=== PATIENT | female | born 1965 | race African-American/Black ===

== ENCOUNTER 2016-11-01 10:51 | Emergency (ER) | payer BC ==
--- NOTE | 2016-11-01 11:03 | ER Document Report ---
ED Medical Screen (RME) - General Chief Complaint: Sore Throat Stated Complaint: SORE THROAT Time seen by provider: 11:00 Mode of Arrival: Ambulatory Information source: Patient Notes: 51-year-old female presents to ED for sore throat for the last 2 weeks. States her throat is swollen and sometimes when she is laying time she has trouble choking on her saliva and mucus. States she has a nasal drainage and a cough. States she had a fever 2 weeks ago not now. States 2 weeks ago she was put on clindamycin and azithromycin and she took them as supposed to and the pain and swelling is still there. States she is postmenopausal I have greeted and performed a rapid initial assessment of this patient. A comprehensive ED assessment and evaluation of the patient, analysis of test results and completion of medical decision making process will be conducted by an additional ED providers. TRAVEL OUTSIDE OF THE [place] IN LAST 30 DAYS: No - Related Data Allergies/Adverse Reactions: Penicillins Allergy (Verified 05/18/16 21:55) Past Medical History - Past Medical History Cardiac Medical History: Reports: Hx Coronary Artery Disease, Hx DVT, Hx Hypercholesterolemia, Hx Hypertension Denies: Hx Heart Attack Pulmonary Medical History: Reports: Hx Bronchitis Denies: Hx Asthma, Hx COPD, Hx Pneumonia Neurological Medical History: Denies: Hx Cerebrovascular Accident, Hx Seizures Endocrine Medical History: Reports: Hx Diabetes Mellitus Type 2 Musculoskeltal Medical History: Reports Hx Arthritis Psychiatric Medical History: Denies: Hx Depression Past Surgical History: Reports: Hx Appendectomy, Hx Cholecystectomy, Hx Kidney ( Renal Surgery), Hx Orthopedic Surgery, Hx Tubal Ligation. Denies: Hx Hysterectomy - Immunizations Immunizations up to date: Yes Hx Diphtheria, Pertussis, Tetanus Vaccination: Yes Physical Exam - Vital signs Vitals: Temp Pulse Resp BP Pulse Ox 97.9 F 53 L 18 154/92 H 99 11/01/16 10:55 11/01/16 10:55 11/01/16 10:55 11/01/16 10:55 11/01/16 10:55 Course - Vital Signs Vital signs: Temp Pulse Resp BP Pulse Ox 97.9 F 53 L 18 154/92 H 99 11/01/16 10:55 11/01/16 10:55 11/01/16 10:55 11/01/16 10:55 11/01/16 10:55
--- NOTE | 2016-11-01 11:43 | ER Document Report ---
ED General - General Chief Complaint: Sore Throat Stated Complaint: SORE THROAT Mode of Arrival: Ambulatory Information source: Patient Notes: Patient presents to the emergency department with complaints of having problems breathing throat swelling. Patient reports symptoms worse the past 2 weeks. She reports she was at urgent care and they treated her with Zithromax and clindamycin. She reports this is an ongoing problem for over a year ago. Patient reports she felt like she is warm never took her temperature patient also complains of diarrhea 2 weeks ago and once this past monday. Denies vomiting. TRAVEL OUTSIDE OF THE [place] IN LAST 30 DAYS: No - HPI Onset: Other Onset/Duration: Persistent Quality of pain: Achy, Fullness Pain Level: 4 Associated symptoms: Productive cough, Diarrhea, Fever, Nausea, Sore throat Exacerbated by: Denies Relieved by: Denies Similar symptoms previously: Yes Recently seen / treated by doctor: Yes - Related Data Allergies/Adverse Reactions: Penicillins Allergy (Verified 11/01/16 11:01) Past Medical History - General Information source: Patient - Social History Smoking Status: Current Every Day Smoker Cigarette use (# per day): Yes Chew tobacco use (# tins/day): No Frequency of alcohol use: Occasional Drug Abuse: None Family History: Reviewed & Not Pertinent Patient has suicidal ideation: No Patient has homicidal ideation: No - Past Medical History Cardiac Medical History: Reports: Hx Coronary Artery Disease, Hx DVT, Hx Hypercholesterolemia, Hx Hypertension Denies: Hx Heart Attack Pulmonary Medical History: Reports: Hx Bronchitis Denies: Hx Asthma, Hx COPD, Hx Pneumonia Neurological Medical History: Denies: Hx Cerebrovascular Accident, Hx Seizures Endocrine Medical History: Reports: Hx Diabetes Mellitus Type 2 Renal/ Medical History: Denies: Hx Peritoneal Dialysis Musculoskeltal Medical History: Reports Hx Arthritis Psychiatric Medical History: Denies: Hx Depression Past Surgical History: Reports: Hx Appendectomy, Hx Cholecystectomy, Hx Kidney ( Renal Surgery), Hx Orthopedic Surgery, Hx Tubal Ligation. Denies: Hx Hysterectomy - Immunizations Immunizations up to date: Yes Hx Diphtheria, Pertussis, Tetanus Vaccination: Yes Review of Systems - Review of Systems Notes: Review HPI for review of systems., All other systems negative Physical Exam - Vital signs Vitals: Temp Pulse Resp BP Pulse Ox 97.9 F 53 L 18 154/92 H 99 11/01/16 10:55 11/01/16 10:55 11/01/16 10:55 11/01/16 10:55 11/01/16 10:55 - Notes Notes: PHYSICAL EXAMINATION: GENERAL: Well-appearing and in no acute distress HEAD: Atraumatic, normocephalic. EYES: Pupils equal round, extraocular movements intact, sclera anicteric, conjunctiva are normal. ENT: nares patent, oropharynx clear without exudates. Moist mucous membranes. Good airway, no trouble talking, +post nasal discharge NECK: Normal range of motion, supple without lymphadenopathy , c/o pain chin LUNGS: CTAB and equal. No wheezes rales or rhonchi. HEART: Regular rate and rhythm without murmurs ABDOMEN: soft, no c/o pain EXTREMITIES: Normal range of motion, no pitting edema. NEUROLOGICAL: Cranial nerves grossly intact. Normal sensory/motor PSYCH: Normal mood, normal affect. SKIN: Warm, Dry, normal turgor, no rashes or lesions noted Course - Re-evaluation Re-evalutation: 11/01/16 11:38 I have consulted the attending provider, dr echavarria, per [facility] guidelines he advises CT soft tissue neck. Labs ordered to check renal function patient informed of plan of care and agrees to plan. 11/01/16 13:29 Patient has had this chronic swelling or feeling like a swelling to her neck with gagging for over a year. She's been evaluated several times for this. Due to her current symptoms a CT was done and it was negative. Patient instructed on the results of all labs and CT and chest x-ray. Patient was instructed on the importance of drinking lots of fluids to flush her kidneys and no metformin for 48 hours, pt also received information from radiology. She verbalized understanding. Patient instructed to follow up with Dr. Stallings for referral to ENT. Patient was also instructed on postnasal drip. - Vital Signs Vital signs: Temp Pulse Resp BP Pulse Ox 97.9 F 53 L 18 154/92 H 99 11/01/16 10:55 11/01/16 10:55 11/01/16 10:55 11/01/16 10:55 11/01/16 10:55 - Laboratory Result Diagrams: 11/01/16 11:48 11/01/16 11:48 Laboratory results interpreted by me: 11/01/16 11/01/16 11:48 11:48 RDW 14.2 H Creatinine 1.33 H Est GFR ( Amer) 51 L Est GFR (Non-Af Amer) 42 L - Diagnostic Test Radiology reviewed: Image reviewed, Reports reviewed - IMPRESSION: No evidence of abscess or other acute finding cxray-neg Discharge - Discharge Clinical Impression: Sore throat, history of gagging, elevated blood pressure Condition: Stable Disposition: HOME, SELF-CARE Instructions: Sore Throat ([facility]), ENT Additional Instructions: *You have been evaluated for a sore throat, history of gagging *The CT of your neck was negative for an acute injury, abscess or swelling *The chest xray was negative for pneumonia *The strep test was negative but a culture is pending, you will be contacted should you need antibiotics. *Monitor your blood pressure. Your blood pressure was elevated today. This may be because you were anxious, in pain or because you need medication. It is important to follow up with your primary care provider for full evaluation. *Monitor your temperature, take tylenol as indicated *Warm salt water gargles and throat lozenges for comfort *Good hand washing *Follow-up with Dr Wilder within one week *Follow up with ENT for evaluation of symptoms *Return to ED for worsening condition change, needs, trouble breathing, concerns Forms: Elevated Blood Pressure
[2016-11-01 12:14] LABS: ABSOLUTE BASOPHILS # (AUTO) 0.1 10^3/uL (0.0-0.2); ABSOLUTE EOSINOPHILS # (AUTO) 0.2 10^3/uL (0.0-0.6); ABSOLUTE LYMPHOCYTES (AUTO) 2.6 10^3/uL (0.5-4.7); ABSOLUTE MONOCYTES (AUTO) 0.6 10^3/uL (0.1-1.4); ABSOLUTE NEUT (AUTO) 2.6 10^3/uL (1.7-8.2); EOSINOPHILS % (AUTO) 2.9 % (0-6); HEMATOCRIT 38.3 % (36.0-47.0); HEMOGLOBIN 12.5 g/dL (12.0-15.5); HGB HCT DIFFERENCE -0.8; LYMPHOCYTES % (AUTO) 42.6 % (13-45); MEAN CORPUSCULAR HEMOGLOBIN 30.4 pg (27.0-33.4); MEAN CORPUSCULAR HGB CONC 32.6 g/dL (32.0-36.0); MEAN CORPUSCULAR VOLUME 93 fl (80-97); MONOCYTES % (AUTO) 10.1 % (3-13); RED BLOOD COUNT 4.11 10^6/uL (3.72-5.28); RED CELL DISTRIBUTION WIDTH 14.2 % (11.5-14.0); SEGMENTED NEUTROPHILS % (AUTO) 43.4 % (42-78); WHITE BLOOD COUNT 6.1 10^3/uL (4.0-10.5)
[2016-11-01 12:33] LABS: ALANINE AMINOTRANSFERASE 21 U/L (9-52); ALKALINE PHOSPHATASE 79 U/L (38-126); ANION GAP 12 (5-19); ASPARTATE AMINO TRANSFERASE 15 U/L (14-36); BILIRUBIN,TOTAL 0.6 mg/dL (0.2-1.3); BLOOD UREA NITROGEN 15 mg/dL (7-20); CALCIUM 9.2 mg/dL (8.4-10.2); CARBON DIOXIDE 26 mmol/L (22-30); CHLORIDE 104 mmol/L (98-107); CREATININE RESULT 1.33 mg/dL (0.52-1.25); GLUCOSE 89 mg/dL (75-110); POTASSIUM 4.4 mmol/L (3.6-5.0); SODIUM 141.6 mmol/L (137-145); TOTAL PROTEIN 6.5 g/dL (6.3-8.2)
[2016-11-01 13:51] VITALS: BP 149/81
== END 2016-11-01 13:51 | disposition home or self-care (01) ==
LOC: ER 10:51
DX: J02.9 Acute pharyngitis, unspecified (principal); R06.00 Dyspnea, unspecified; R19.7 Diarrhea, unspecified; R09.82 Postnasal drip; R05 Cough; R11.0 Nausea; E11.9 Type 2 diabetes mellitus without complications; I25.10 Atherosclerotic heart disease of native coronary artery without angina pectoris; I10 Essential (primary) hypertension; F17.210 Nicotine dependence, cigarettes, uncomplicated; Z88.0 Allergy status to penicillin; Z86.718 Personal history of other venous thrombosis and embolism
CPT/HCPCS: 36415; 70491; 71020; 80053; 85025; 87070; 87077; 87880; 99284

== ENCOUNTER 2017-02-11 14:37 | Emergency (ER) | payer BC ==
[2017-02-11] MEDS ORDERED: OXYCODONE-ACETAMINOPHEN 5-325 MG TABLET PO ONE (15:33)
--- NOTE | 2017-02-11 15:50 | ER Document Report ---
HPI - HPI Patient complains to provider of: sore throat, foot pain Onset: Other - Sore throat 5 days, foot pain 1 week Onset/Duration: Persistent Quality of pain: Burning, Sharp Pain Level: 5 Context: Patient complains of a burning pain to bilateral feet for the past week. Patient states she has been diagnosed with diabetic neuropathy and complains of a flare up of her pain. Patient states she has been compliant taking her gabapentin but denies any improvement of her pain symptoms. Patient denies any injury to the feet. Patient also reports sore throat for the past 5 days. No fever. Patient does complain of swelling to bilateral ankles and right foot. Patient states she has a prescription for Lasix that she is supposed to take twice a day, but due to her work schedule she typically only takes the medication once a day as she does not find enough opportunity to void when she is working, so she does not take her prescribed dose. Associated Symptoms: Other - Sore throat, bilateral foot pain. denies: Fever, Nausea, Vomiting Exacerbated by: Denies Relieved by: Denies Similar symptoms previously: Yes - ROS ROS below otherwise negative: Yes Systems Reviewed and Negative: Yes All other systems reviewed and negative - CONSTITUTIONAL Constitutional: DENIES: Fever, Chills - EENT EENT: REPORTS: Sore Throat. 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 Family History: Reviewed & Not Pertinent Patient has suicidal ideation: No Patient has homicidal ideation: No - Past Medical History Cardiac Medical History: Reports: Hx Coronary Artery Disease, Hx DVT, Hx Hypercholesterolemia, Hx Hypertension Denies: Hx Heart Attack Pulmonary Medical History: Reports: Hx Bronchitis Denies: Hx Asthma, Hx COPD, Hx Pneumonia Neurological Medical History: Denies: Hx Cerebrovascular Accident, Hx Seizures Endocrine Medical History: Reports: Hx Diabetes Mellitus Type 2 Renal/ Medical History: Denies: Hx Peritoneal Dialysis Musculoskeltal Medical History: Reports Hx Arthritis Psychiatric Medical History: Denies: Hx Depression Past Surgical History: Reports: Hx Appendectomy, Hx Cholecystectomy, Hx Kidney ( Renal Surgery), Hx Orthopedic Surgery, Hx Tonsillectomy, Hx Tubal Ligation. Denies: Hx Hysterectomy - Immunizations Immunizations up to date: Yes Hx Diphtheria, Pertussis, Tetanus Vaccination: Yes Vertical Provider Document - CONSTITUTIONAL Agree With Documented VS: Yes Exam Limitations: No Limitations General Appearance: WD/WN, No Apparent Distress - INFECTION CONTROL TRAVEL OUTSIDE OF THE [place] IN LAST 30 DAYS: No - HEENT HEENT: Atraumatic, Normocephalic, Pharyngeal Tenderness. negative: Pharyngeal Exudate, Pharyngeal Erythema Notes: No potential airway compromise - NECK Neck: Normal Inspection, Supple. negative: Lymphadenopathy-Left, Lymphadenopathy-Right Notes: No lymphadenopathy - RESPIRATORY Respiratory: Breath Sounds Normal, No Respiratory Distress, Chest Non-Tender O2 Sat by Pulse Oximetry: 99 - CARDIOVASCULAR Cardiovascular: Regular Rate, Regular Rhythm, No Murmur Pulses: Normal: Dorsalis pedis - BACK Back: Normal Inspection - MUSCULOSKELETAL/EXTREMETIES Musculoskeletal/Extremeties: MAEW, Tender - Bilateral pedal tenderness with palpation, Edema - 1+ to right foot, 2+ to bilateral ankles - NEURO Level of Consciousness: Awake, Alert, Appropriate Motor/Sensory: No Motor Deficit - DERM Integumentary: Warm, Dry Notes: Patient with plantar wart to plantar surface of bilateral feet Course - Vital Signs Vital signs: Temp Pulse Resp BP Pulse Ox 97.7 F 81 20 158/87 H 99 02/11/17 14:49 02/11/17 14:49 02/11/17 14:49 02/11/17 14:49 02/11/17 14:49 - Laboratory Laboratory results interpreted by me: 02/11/17 16:30 Labs- Entire Visit 02/11/17 15:45 Group A Strep Rapid NEGATIVE Discharge - Discharge Clinical Impression: Foot pain, bilateral, Hx of diabetic neuropathy, Sore throat, Hx of essential hypertension Condition: Stable Disposition: HOME, SELF-CARE Instructions: Chronic Pain Control ([facility]), Neuropathy ([facility]), Sore Throat ([facility]), Family Physicians / Practices Additional Instructions: Return immediately for any new or worsening symptoms Followup with your primary care provider, call tomorrow to make a followup appointment Continue to take your gabapentin at home as prescribed Throat culture is pending, we will call if you need any different treatment Your blood pressure was elevated today, recheck with primary doctor to have this evaluated in 2 days. Prescriptions: Capsaicin 1 applic TP TID PRN #60 cream.gm. PRN Reason: Forms: Elevated Blood Pressure Referrals: [facility] [Provider Group] - 02/13/17
[2017-02-11 18:02] VITALS: BP 153/91
== END 2017-02-11 18:14 | disposition home or self-care (01) ==
LOC: ER 14:37
DX: E11.40 Type 2 diabetes mellitus with diabetic neuropathy, unspecified (principal); B07.0 Plantar wart; M79.671 Pain in right foot; M79.672 Pain in left foot; I10 Essential (primary) hypertension; J02.9 Acute pharyngitis, unspecified; I25.10 Atherosclerotic heart disease of native coronary artery without angina pectoris; R60.0 Localized edema; T50.1X6A Underdosing of loop [high-ceiling] diuretics, initial encounter; Z91.128 Patient's intentional underdosing of medication regimen for other reason; Z91.14 Patient's other noncompliance with medication regimen; Z79.899 Other long term (current) drug therapy; F17.200 Nicotine dependence, unspecified, uncomplicated
CPT/HCPCS: 87070; 87077; 87880; 99283

== ENCOUNTER 2017-02-20 23:39 | Emergency (ER) | payer BC ==
[2017-02-21] MEDS ORDERED: ASPIRIN 81 MG TABLET, CHEWABLE PO ONE (01:38)
[2017-02-21 02:14] LABS: ABSOLUTE BASOPHILS # (AUTO) 0.1 10^3/uL (0.0-0.2); ABSOLUTE EOSINOPHILS # (AUTO) 0.1 10^3/uL (0.0-0.6); ABSOLUTE LYMPHOCYTES (AUTO) 2.8 10^3/uL (0.5-4.7); ABSOLUTE MONOCYTES (AUTO) 0.6 10^3/uL (0.1-1.4); ABSOLUTE NEUT (AUTO) 2.6 10^3/uL (1.7-8.2); BASOPHILS % (AUTO) 1.4 % (0-2); EOSINOPHILS % (AUTO) 2.2 % (0-6); HEMOGLOBIN 13.8 g/dL (12.0-15.5); HGB HCT DIFFERENCE 0.4; LYMPHOCYTES % (AUTO) 45.7 % (13-45); MEAN CORPUSCULAR HEMOGLOBIN 30.9 pg (27.0-33.4); MEAN CORPUSCULAR HGB CONC 33.7 g/dL (32.0-36.0); MEAN CORPUSCULAR VOLUME 92 fl (80-97); MONOCYTES % (AUTO) 9.1 % (3-13); RED BLOOD COUNT 4.48 10^6/uL (3.72-5.28); RED CELL DISTRIBUTION WIDTH 13.8 % (11.5-14.0); SEGMENTED NEUTROPHILS % (AUTO) 41.6 % (42-78); WHITE BLOOD COUNT 6.1 10^3/uL (4.0-10.5)
[2017-02-21 02:28] LABS: ALANINE AMINOTRANSFERASE 31 U/L (9-52); ALBUMIN 4.3 g/dL (3.5-5.0); ALKALINE PHOSPHATASE 84 U/L (38-126); ANION GAP 10 (5-19); ASPARTATE AMINO TRANSFERASE 24 U/L (14-36); BILIRUBIN,DIRECT 0.5 mg/dL (0.0-0.4); BILIRUBIN,TOTAL 0.9 mg/dL (0.2-1.3); BLOOD UREA NITROGEN 14 mg/dL (7-20); CALCIUM 9.8 mg/dL (8.4-10.2); CARBON DIOXIDE 27 mmol/L (22-30); CHLORIDE 104 mmol/L (98-107); CREATINE KINASE 307 U/L (30-135); GLUCOSE 124 mg/dL (75-110); LIPASE 87.4 U/L (23-300); POTASSIUM 3.9 mmol/L (3.6-5.0); SODIUM 141.1 mmol/L (137-145); TOTAL PROTEIN 8.1 g/dL (6.3-8.2)
[2017-02-21 02:39] LABS: CREATINE KINASE MB 2.13 ng/mL (<4.55)
[2017-02-21 02:40] LABS: TROPONIN I < 0.012 ng/mL
--- NOTE | 2017-02-21 03:11 | ER Document Report ---
ED Neck/Back Problem - General Chief Complaint: Upper back pain, arm pain, neck pain Stated Complaint: NECK AND BACK PAIN Time Seen by Provider: 02/21/17 01:22 Mode of Arrival: Ambulatory Information source: Patient Notes: Patient is a 51-year-old -[place] female who presents to the ER today for 3 days of upper back pain, some chest discomfort radiating into both arms from the back only. Patient states that her upper back and neck or what is bothering her the most. She denies any numbness or tingling, shortness of breath, nausea or vomiting. She states that the pain has been constant and is worse with movement. She denies any injury. She has no history of heart attack or stroke but does take medication for blood pressure and diabetes, acid reflux. TRAVEL OUTSIDE OF THE [place] IN LAST 30 DAYS: No - Related Data Allergies/Adverse Reactions: Penicillins Allergy (Verified 02/11/17 15:55) Past Medical History - General Information source: Patient - Social History Smoking Status: Unknown if Ever Smoked Family History: Reviewed & Not Pertinent - Past Medical History Cardiac Medical History: Reports: Hx Coronary Artery Disease, Hx DVT, Hx Hypercholesterolemia, Hx Hypertension Denies: Hx Heart Attack Pulmonary Medical History: Reports: Hx Bronchitis Denies: Hx Asthma, Hx COPD, Hx Pneumonia Neurological Medical History: Denies: Hx Cerebrovascular Accident, Hx Seizures Endocrine Medical History: Reports: Hx Diabetes Mellitus Type 2 Renal/ Medical History: Denies: Hx Peritoneal Dialysis Musculoskeltal Medical History: Reports Hx Arthritis Psychiatric Medical History: Denies: Hx Depression Past Surgical History: Reports: Hx Appendectomy, Hx Cholecystectomy, Hx Kidney ( Renal Surgery), Hx Orthopedic Surgery, Hx Tonsillectomy, Hx Tubal Ligation. Denies: Hx Hysterectomy - Immunizations Immunizations up to date: Yes Hx Diphtheria, Pertussis, Tetanus Vaccination: Yes Review of Systems - Review of Systems Constitutional: No symptoms reported EENT: No symptoms reported Cardiovascular: See HPI Respiratory: No symptoms reported Gastrointestinal: See HPI Genitourinary: No symptoms reported Female Genitourinary: No symptoms reported Musculoskeletal: See HPI Skin: No symptoms reported Hematologic/Lymphatic: No symptoms reported Neurological/Psychological: No symptoms reported Physical Exam - Notes Notes: PHYSICAL EXAMINATION: GENERAL: Well-appearing and in no acute distress. HEAD: Atraumatic, normocephalic. EYES: Pupils equal round and reactive to light, extraocular movements intact, sclera anicteric, conjunctiva are normal. NECK: Normal range of motion, supple without lymphadenopathy LUNGS: CTAB and equal. No wheezes rales or rhonchi. HEART: Upper chest tender to palpation, Regular rate and rhythm without murmurs ABDOMEN: Soft, no tenderness. No guarding, no rebound BACK: Bilateral trapezius muscles tender to palpation, no vertebral tenderness, normal ROM GI/: no CVA tenderness EXTREMITIES: Normal range of motion, no pitting edema. No cyanosis. NEUROLOGICAL: Cranial nerves grossly intact. Normal sensory/motor exams. PSYCH: Normal mood, normal affect. SKIN: Warm, Dry, normal turgor, no rashes or lesions noted Course - Re-evaluation Re-evalutation: 02/21/17 03:09 Lab work is unremarkable today including normal set of cardiac enzymes, EKG reveals a sinus bradycardia at a rate of 48 bpm, otherwise patient's pulses been above 50. - Laboratory Result Diagrams: 02/21/17 02:00 02/21/17 02:00 Laboratory results interpreted by me: 02/21/17 02/21/17 02:00 02:00 Seg Neutrophils % 41.6 L Lymphocytes % 45.7 H Est GFR (Non-Af Amer) 52 L Glucose 124 H Direct Bilirubin 0.5 H Creatine Kinase 307 H Discharge - Discharge Clinical Impression: Back pain Qualifiers: Back pain location: back pain in unspecified location Chronicity: acute Back pain laterality: bilateral Qualified Code(s): M54.9 - Dorsalgia, unspecified Chest pain Qualifiers: Chest pain type: unspecified Qualified Code(s): R07.9 - Chest pain, unspecified Condition: Stable Disposition: HOME, SELF-CARE Additional Instructions: Return immediately for any new or worsening symptoms. Follow up with primary care provider, call tomorrow to make followup appointment. Prescriptions: Cyclobenzaprine HCl [Flexeril 10 mg Tablet] 10 mg PO TIDP PRN #15 tab PRN Reason: Omeprazole Magnesium [Prilosec Otc] 20 mg PO DAILY #14 tablet. Referrals: [facility] [Provider Group] - Follow up as needed
[2017-02-21] MEDS ORDERED: FAMOTIDINE 20 MG TABLET PO ONE (03:13)
[2017-02-21] MEDS ORDERED: CYCLOBENZAPRINE HCL 10 MG TABLET PO ONE (03:28)
[2017-02-21 04:12] VITALS: BP 167/79
--- NOTE | 2017-02-21 10:41 | EKG REPORT ---
SEVERITY:- ABNORMAL ECG - SINUS BRADYCARDIA LVH WITH IVCD AND SECONDARY REPOL ABNRM : Confirmed by: Aracelis Vivas MD 21-Feb-2017 10:41:11
== END 2017-02-21 04:12 | disposition home or self-care (01) ==
LOC: ER 23:39
DX: M54.9 Dorsalgia, unspecified (principal); R07.9 Chest pain, unspecified; E11.9 Type 2 diabetes mellitus without complications; E78.00 Pure hypercholesterolemia, unspecified; I10 Essential (primary) hypertension; I25.10 Atherosclerotic heart disease of native coronary artery without angina pectoris; Z90.49 Acquired absence of other specified parts of digestive tract; Z98.51 Tubal ligation status; Z86.718 Personal history of other venous thrombosis and embolism; Z88.0 Allergy status to penicillin
CPT/HCPCS: 36415; 71010; 80053; 82550; 82553; 83690; 84484; 85025; 93005; 93010; 99284

== ENCOUNTER 2017-11-10 08:28 | Emergency (ER) | payer BC ==
--- NOTE | 2017-11-10 08:58 | ER Document Report ---
ED General - General Chief Complaint: General Weakness Stated Complaint: SORE THROAT Time Seen by Provider: 11/10/17 08:43 TRAVEL OUTSIDE OF THE [place] IN LAST 30 DAYS: No - HPI Notes: Patient is a 52-year-old female with a history of hypertension, type 2 diabetes , acid reflux who presents to the ED complaining of weakness, epigastric pain, sore throat, occ cough-nonproductive 3 days. Pt was told by her PCM's office ( no longer Dr. Nuno) that her sugars were "high." Pt is currently on Janumet. Patient states that she has not been checking her sugars lately. Patient also reports having an episode of chest pain last night that resolved within a couple minutes. Patient states that she did have some shortness of breath with stairs last night as well, but none today. Patient has had a history with acid reflux and causing a sore throat in the past. Patient states that she is otherwise eating and drinking without any difficulties. She is urinating normally and having normal bowel movements. She states that the pains did not radiate. Patient states that when she pushes on her chest she can feel that chest pain she described yesterday. Patient has not had any prolonged immobilization, recent surgery/trauma, hormone replacement, smoking. Patient does admit to a previous DVT for unknown reasons about 11 years ago and is no longer on blood thinners 5 years. She has no other concerns or complaints at this time. She denies any IV drug use. Denies any headache, fever, neck pain , URI, palpitations, syncope, wheeze, dyspnea, nausea/vomiting/diarrhea, urinary retention, dysuria, hematuria, back pain, loss of control of bowel or bladder, numbness/tingling, saddle anesthesia, muscle paralysis/weakness, or rash. - Related Data Allergies/Adverse Reactions: Penicillins Allergy (Verified 08/11/17 16:45) Past Medical History - Social History Smoking Status: Never Smoker Family History: Reviewed & Not Pertinent - Past Medical History Cardiac Medical History: Reports: Hx Coronary Artery Disease, Hx DVT, Hx Hypercholesterolemia, Hx Hypertension Denies: Hx Heart Attack Pulmonary Medical History: Reports: Hx Bronchitis Denies: Hx Asthma, Hx COPD, Hx Pneumonia Neurological Medical History: Denies: Hx Cerebrovascular Accident, Hx Seizures Endocrine Medical History: Reports: Hx Diabetes Mellitus Type 2 Renal/ Medical History: Denies: Hx Peritoneal Dialysis Musculoskeltal Medical History: Reports Hx Arthritis Psychiatric Medical History: Denies: Hx Depression Past Surgical History: Reports: Hx Appendectomy, Hx Cholecystectomy, Hx Kidney ( Renal Surgery), Hx Orthopedic Surgery, Hx Tonsillectomy, Hx Tubal Ligation. Denies: Hx Hysterectomy - Immunizations Immunizations up to date: Yes Hx Diphtheria, Pertussis, Tetanus Vaccination: Yes Review of Systems - Review of Systems -: Yes All other systems reviewed and negative Physical Exam - Vital signs Vitals: Temp Pulse Resp BP Pulse Ox 98.6 F 57 L 16 173/93 H 100 11/10/17 08:35 11/10/17 08:35 11/10/17 08:35 11/10/17 08:35 11/10/17 08:35 - Notes Notes: PHYSICAL EXAMINATION: GENERAL: Well-appearing, well-nourished and in no acute distress. A&Ox4. Answers questions appropriately. No apparent distress and moving comfortably. HEAD: Atraumatic, normocephalic. EYES: Pupils equal round and reactive to light, extraocular movements intact, sclera anicteric, conjunctiva are normal. ENT: Nares patent and without discharge. oropharynx clear without exudates. No tonsilar hypertrophy or erythema. Moist mucous membranes. No sinus tenderness. Uvula midline. No palatine shift. No airway compromise. No tongue protrusion. NECK: Normal range of motion, supple without lymphadenopathy. No rigidity/ meningismus. Chest: + moderate tenderness (correlates with pain described). Equal rise/ fall. No flail chest. LUNGS: Breath sounds clear to auscultation bilaterally and equal. No wheezes rales or rhonchi. HEART: Regular rate and rhythm without murmurs, rubs, gallops. ABDOMEN: Soft, nondistended abdomen. No guarding, no rebound. No masses appreciated. Normal bowel sounds present. No CVA tenderness bilaterally. + mild tenderness to the epigastrum. McBurney/Wayne negative. Musculoskeletal: FROM to passive/active. Strength 5+/5. James neg b/l. No calf erythema/swelling. Extremities: 1+ pitting edema b/l. Peripheral pulses 2+. Capillary refill less than 3 seconds. NEUROLOGICAL: Cranial nerves grossly intact. Normal speech, normal gait. Normal sensory, motor exams PSYCH: Normal mood, normal affect. SKIN: Warm, Dry, normal turgor, no rashes or lesions noted. Course - Re-evaluation Re-evalutation: 11/10/17 15:09 Patient is an afebrile, well-hydrated, 52-year-old female who presents to the ED with suspected pneumonia. Vitals are stable. PE is otherwise unremarkable. CBC, CMP, cardiac enzymes 2/EKG, BNP, lipase, chest x-ray unremarkable for any acute pathology. See CT scan results of the chest. CT scan was obtained due to an elevated d-dimer. Patient had a history of DVT and atypical symptoms. heart score of 2. Patient is tolerating p.o. without difficulties. Patient was given fluids as well as a GI cocktail which improved/resolved her epigastric discomfort. Low suspicion for any ACS, PE, pneumothorax, pericarditis, dissection, respiratory compromise, severe dehydration, sepsis, meningitis, acute abdomen, or other systemic emergent condition at this time. Patient is aware that her condition can change from initial presentation and she needs to monitor symptoms closely and seek medical attention for any acute changes. I will send her home with a prescription for Zithromax to take as directed as well as carafate and omeprazole. Recommend conservative measures for symptoms. Recheck with your PCM in 3-5 days. Return to the ED with any worsening/concerning symptoms otherwise as reviewed in discharge. Patient is in agreement. - Vital Signs Vital signs: Temp Pulse Resp BP Pulse Ox 98.6 F 57 L 10 L 156/84 H 99 11/10/17 08:35 11/10/17 08:35 11/10/17 14:20 11/10/17 14:20 11/10/17 14:20 - Laboratory Result Diagrams: 11/10/17 09:36 11/10/17 09:36 Laboratory results interpreted by me: 11/10/17 11/10/17 11/10/17 09:36 09:36 09:36 RDW 14.3 H Seg Neutrophils % 39.3 L Lymphocytes % 46.9 H D-Dimer 0.62 H Est GFR (Non-Af Amer) 53 L Glucose 117 H POC Glucose Creatine Kinase 275 H 11/10/17 10:06 RDW Seg Neutrophils % Lymphocytes % D-Dimer Est GFR (Non-Af Amer) Glucose POC Glucose 112 H Creatine Kinase Discharge - Discharge Clinical Impression: Pneumonia Qualifiers: Pneumonia type: due to unspecified organism Laterality: bilateral Lung location : lower lobe of lung Qualified Code(s): J18.9 - Pneumonia, unspecified organism Condition: Stable Disposition: HOME, SELF-CARE Instructions: Azithromycin ([facility]), Pneumonia ([facility]) Additional Instructions: Maintain adequate fluid intake Take meds as directed tylenol/ibuprofen as needed over the counter cold medication as needed for symptoms Humidified air may help F/u: with your PCM in 3-5 days for a recheck Return to the ED with any fever, worsening pain, chest pain, palpitations, syncope, worsening SCHAEFFER, neck pain/stiffness, shortness of breath, wheezing, drooling, trouble swallowing/breathing, abdominal pain, n/v/d, rash, or worsening/concerning symptoms otherwise. Prescriptions: Azithromycin [Zithromax 250 mg Tablet] 250 mg PO ASDIR PRN #6 tablet PRN Reason: Omeprazole 20 mg PO DAILY #30 tablet. Sucralfate [Carafate] 1 gm PO QID PRN #420 ml PRN Reason: Forms: Elevated Blood Pressure, Return to Work Referrals: [facility] [Provider Group] - Follow up as needed [facility] [Provider Group] - Follow up as needed
[2017-11-10] MEDS ORDERED: NORMAL SALINE 1000 ML 1,000 ML IV ONE ×2 (08:59→10:51)
--- NOTE | 2017-11-10 09:38 | RADIOLOGY REPORT (SQ) ---
EXAM DESCRIPTION: CHEST SINGLE VIEW COMPLETED DATE/TIME: 11/10/2017 9:20 am REASON FOR STUDY: epigastric pain, chest pain COMPARISON: 02/21/2017 EXAM PARAMETERS: NUMBER OF VIEWS: One view. TECHNIQUE: Single frontal radiographic view of the chest acquired. RADIATION DOSE: NA LIMITATIONS: None. FINDINGS: LUNGS AND PLEURA: No opacities, masses or pneumothorax. No pleural effusion. MEDIASTINUM AND HILAR STRUCTURES: No masses. Contour normal. HEART AND VASCULAR STRUCTURES: Mild cardiomegaly vasculature within normal limits. BONES: No acute findings. HARDWARE: None in the chest. OTHER: No other significant finding. IMPRESSION: Mild cardiomegaly without evidence of acute cardiopulmonary disease. TECHNICAL DOCUMENTATION: JOB ID: [id number] [employer]- All Rights Reserved
[2017-11-10] MEDS ORDERED: METOCLOPRAMIDE HCL INJ/PF 10 MG/2 ML SDV IV ONE (09:54)
[2017-11-10 09:59] LABS: ABSOLUTE BASOPHILS # (AUTO) 0.1 10^3/uL (0.0-0.2); ABSOLUTE EOSINOPHILS # (AUTO) 0.1 10^3/uL (0.0-0.6); ABSOLUTE MONOCYTES (AUTO) 0.4 10^3/uL (0.1-1.4); ABSOLUTE NEUT (AUTO) 1.7 10^3/uL (1.7-8.2); BASOPHILS % (AUTO) 1.5 % (0-2); EOSINOPHILS % (AUTO) 2.7 % (0-6); HEMATOCRIT 38.8 % (36.0-47.0); HEMOGLOBIN 12.9 g/dL (12.0-15.5); LYMPHOCYTES % (AUTO) 46.9 % (13-45); MEAN CORPUSCULAR HEMOGLOBIN 30.7 pg (27.0-33.4); MEAN CORPUSCULAR HGB CONC 33.3 g/dL (32.0-36.0); MEAN CORPUSCULAR VOLUME 92 fl (80-97); MONOCYTES % (AUTO) 9.6 % (3-13); PLATELET COUNT 221 10^3/uL (150-450); RED BLOOD COUNT 4.21 10^6/uL (3.72-5.28); RED CELL DISTRIBUTION WIDTH 14.3 % (11.5-14.0); SEGMENTED NEUTROPHILS % (AUTO) 39.3 % (42-78); TOTAL CELLS COUNTED % (AUTO) 100 %; WHITE BLOOD COUNT 4.2 10^3/uL (4.0-10.5)
[2017-11-10 10:14] LABS: ALANINE AMINOTRANSFERASE 18 U/L (9-52); ALBUMIN 4.1 g/dL (3.5-5.0); ALKALINE PHOSPHATASE 73 U/L (38-126); ANION GAP 7 (5-19); ASPARTATE AMINO TRANSFERASE 24 U/L (14-36); BILIRUBIN,DIRECT 0.3 mg/dL (0.0-0.4); BILIRUBIN,TOTAL 0.4 mg/dL (0.2-1.3); BLOOD UREA NITROGEN 10 mg/dL (7-20); CALCIUM 9.2 mg/dL (8.4-10.2); CARBON DIOXIDE 29 mmol/L (22-30); CHLORIDE 106 mmol/L (98-107); CREATINE KINASE 275 U/L (30-135); GLUCOSE 117 mg/dL (75-110); LIPASE 81.4 U/L (23-300); POTASSIUM 4.3 mmol/L (3.6-5.0); SODIUM 141.5 mmol/L (137-145); TOTAL PROTEIN 7.2 g/dL (6.3-8.2)
[2017-11-10] MEDS ORDERED: MAG HYDROX/AL HYDROX/SIMETH SUSP 30 ML UDCUP PO ONE (10:25)
[2017-11-10] MEDS ORDERED: LIDOCAINE 2% VISCOUS SOLN 20 ML UDCUP PO ONE (10:25)
[2017-11-10] MEDS ORDERED: METOCLOPRAMIDE HCL ORAL SOLN 10 MG/10 ML UDCUP PO ONE (10:27)
[2017-11-10 10:33] LABS: CREATINE KINASE MB 1.72 ng/mL (<4.55); NT PRO BNP 367 pg/mL (5-900); TROPONIN I < 0.012 ng/mL
[2017-11-10 10:55] LABS: APPEARANCE,URINE CLEAR; BILIRUBIN,URINE NEGATIVE (NEGATIVE); COLOR,URINE STRAW; GLUCOSE, URINE NEGATIVE (NEGATIVE); KETONES,URINE NEGATIVE (NEGATIVE); LEUKOCYTE ESTERASE,URINE NEGATIVE (NEGATIVE); NITRITE,URINE NEGATIVE (NEGATIVE); PROTEIN,URINE NEGATIVE (NEGATIVE); URINE SPECIFIC GRAVITY 1.006; UROBILINOGEN,URINE NEGATIVE mg/dL (<2.0)
--- NOTE | 2017-11-10 12:38 | EKG REPORT ---
SEVERITY:- ABNORMAL ECG - SINUS BRADYCARDIA LVH WITH SECONDARY REPOLARIZATION ABNORMALITY : Confirmed by: Benny Marks MD 10-Nov-2017 12:37:39
--- NOTE | 2017-11-10 13:01 | RADIOLOGY REPORT (SQ) ---
EXAM DESCRIPTION: CTA CHEST COMPLETED DATE/TIME: 11/10/2017 12:44 pm REASON FOR STUDY: chest pain COMPARISON: None. TECHNIQUE: CT scan of the chest performed using helical scanning technique with dynamic intravenous contrast injection. Images reviewed with lung, soft tissue and bone windows. Reconstructed coronal and sagittal MPR images reviewed. Additional 3 dimensional post-processing performed to develop Maximal Intensity Projection images (UT P). All images stored on PACS. All CT scanners at this facility use dose modulation, iterative reconstruction, and/or weight based d osing when appropriate to reduce radiation dose to as low as reasonably achievable (ALARA). [facility]: Dose Right [facility]: CareDose [facility]: Dose Right [facility]: Teradose 4D [facility]: Locately CONTRAST TYPE AND DOSE: contrast/concentration: Isovue 370.00 mg/ml; Total Contrast Delivered: 86.0 ml; Total Saline Delivered: 80.0 ml Contrast bolus optimized for the pulmonary arteries. Not diagnostic for the aorta. RENAL FUNCTION: 1.09 RADIATION DOSE: CT Rad equipment meets quality standard of care and radiation dose reduction techniq ues were employed. CTDIvol: 38.4 - 39.7 mGy. DLP: 1511 mGy-cm. . LIMITATIONS: None. FINDINGS: LUNGS AND PLEURA: Ground-glass infiltrates noted apical posterior segment left upper lob e and within both lower lobes. AORTA AND GREAT VESSELS: No significant abnormality seen. Contrast bolus not optimized for the aort a. HEART: No pericardial effusion. No significant coronary artery calcifications. PULMONARY ARTERIES: No pulmonary emboli identified. HILAR AND MEDIASTINAL STRUCTURES: No mediastinal hilar adenopathy seen. UPPER ABDOMEN: No abnormality of the partially visualized liver or spleen. Status post cholecystecto my. . THYROID AND OTHER SOFT TISSUES: No masses. No adenopathy. BONES: Dorsal spondylosis noted. 3D MIPS: Confirm above findings. IMPRESSION: THERE ARE GROUND-GLASS INFILTRATES NOTED IN LEFT UPPER LOBE AND BOTH LOWER LOBES. PNEUM ONIA NOT EXCLUDED. . NO PULMONARY EMBOLI. COMMENT: Quality ID # [id number]: Final reports with documentation of one or more dose reduction techniques (e.g., Automated exposure control, adjustment of the mA and/or kV according to patient size, use of iterative reconstruction technique) TECHNICAL DOCUMENTATION: JOB ID: [id number] 2010 [employer]- All Rights Reserved
[2017-11-10 16:28] VITALS: BP 187/97
[2017-11-10 16:33] LABS: A TYPE INFLUENZA AG NEGATIVE (NEGATIVE); B INFLUENZA AG NEGATIVE (NEGATIVE)
== END 2017-11-10 15:58 | disposition home or self-care (01) ==
LOC: ER 08:28
DX: J18.9 Pneumonia, unspecified organism (principal); R53.1 Weakness; R10.13 Epigastric pain; I25.10 Atherosclerotic heart disease of native coronary artery without angina pectoris; E11.9 Type 2 diabetes mellitus without complications; I10 Essential (primary) hypertension; E78.00 Pure hypercholesterolemia, unspecified; Z88.0 Allergy status to penicillin; Z86.718 Personal history of other venous thrombosis and embolism; Z90.49 Acquired absence of other specified parts of digestive tract; Z98.51 Tubal ligation status
CPT/HCPCS: 93005; 99284; 96360; 96361; 36415; 82553; 82962; 82550; 83690; 85025; 80053; 81001; 84484; 85379; 87804; 83880; 71045; 71275; 93010; J3490; J7030

== ENCOUNTER 2018-05-01 18:17 | Emergency (ER) | payer BC ==
[2018-05-01] MEDS ORDERED: ASPIRIN 81 MG TABLET, CHEWABLE PO ONE (19:27)
--- NOTE | 2018-05-01 19:46 | ER Document Report ---
ED Medical Screen (RME) - General Chief Complaint: Chest Pain Stated Complaint: CHEST PAIN Time Seen by Provider: 05/01/18 19:43 Mode of Arrival: Ambulatory Information source: Patient Notes: Patient is a 53-year-old female who presents with epigastric and mid sternal chest pain that radiates to her left arm. Patient reports this is been going on for about a day and a half. Patient reports the pain is intermittent, with no aggravating or alleviating factors. Patient reports some shortness of breath and diaphoresis. Patient denies any nausea. Patient reports that she already took 325 mg of aspirin just prior to arrival. Patient reports past medical history of severe acid reflux for which she is taking Prilosec, also reports history of hyperlipidemia, hypertension and diabetes. Patient is a smoker. Exam: Tenderness to palpation to epigastric area as well as mid sternum and left chest wall. Lung sounds clear to auscultation bilaterally. Heart sounds S1-S2 present. I have greeted and performed a rapid initial assessment of this patient. A comprehensive ED assessment and evaluation of the patient, analysis of test results and completion of the medical decision making process will be conducted by additional ED providers. Dictation of this chart was performed using voice recognition software; therefore, there may be some unintended grammatical errors. TRAVEL OUTSIDE OF THE [place] IN LAST 30 DAYS: No - Related Data Allergies/Adverse Reactions: Penicillins Allergy (Verified 08/11/17 16:45) Past Medical History - Social History Chew tobacco use (# tins/day): No Frequency of alcohol use: Occasional Drug Abuse: None - Past Medical History Cardiac Medical History: Reports: Hx Coronary Artery Disease, Hx DVT, Hx Hypercholesterolemia, Hx Hypertension Denies: Hx Heart Attack Pulmonary Medical History: Reports: Hx Bronchitis Denies: Hx Asthma, Hx COPD, Hx Pneumonia Neurological Medical History: Denies: Hx Cerebrovascular Accident, Hx Seizures Endocrine Medical History: Reports: Hx Diabetes Mellitus Type 2 Renal/ Medical History: Denies: Hx Peritoneal Dialysis Musculoskeltal Medical History: Reports Hx Arthritis Psychiatric Medical History: Denies: Hx Depression Past Surgical History: Reports: Hx Appendectomy, Hx Cholecystectomy, Hx Kidney ( Renal Surgery), Hx Orthopedic Surgery, Hx Tonsillectomy, Hx Tubal Ligation. Denies: Hx Hysterectomy - Immunizations Immunizations up to date: Yes Hx Diphtheria, Pertussis, Tetanus Vaccination: Yes Physical Exam - Vital signs Vitals: Temp Pulse Resp BP Pulse Ox 99.2 F 55 L 20 175/85 H 98 05/01/18 18:34 05/01/18 18:34 05/01/18 18:34 05/01/18 18:34 05/01/18 18:34 Course - Vital Signs Vital signs: Temp Pulse Resp BP Pulse Ox 99.2 F 55 L 20 175/85 H 98 05/01/18 18:34 05/01/18 18:34 05/01/18 18:34 05/01/18 18:34 05/01/18 18:34 - Laboratory Result Diagrams: 05/01/18 19:30 05/01/18 19:30
[2018-05-01 19:48] LABS: ABSOLUTE BASOPHILS # (AUTO) 0.1 10^3/uL (0.0-0.2); ABSOLUTE EOSINOPHILS # (AUTO) 0.1 10^3/uL (0.0-0.6); ABSOLUTE LYMPHOCYTES (AUTO) 2.4 10^3/uL (0.5-4.7); ABSOLUTE MONOCYTES (AUTO) 0.4 10^3/uL (0.1-1.4); ABSOLUTE NEUT (AUTO) 1.9 10^3/uL (1.7-8.2); EOSINOPHILS % (AUTO) 2.1 % (0-6); HEMATOCRIT 38.8 % (36.0-47.0); LYMPHOCYTES % (AUTO) 48.8 % (13-45); MEAN CORPUSCULAR HEMOGLOBIN 31.3 pg (27.0-33.4); MEAN CORPUSCULAR HGB CONC 33.6 g/dL (32.0-36.0); MEAN CORPUSCULAR VOLUME 93 fl (80-97); MONOCYTES % (AUTO) 8.4 % (3-13); PLATELET COUNT 212 10^3/uL (150-450); RED BLOOD COUNT 4.16 10^6/uL (3.72-5.28); SEGMENTED NEUTROPHILS % (AUTO) 39.7 % (42-78); TOTAL CELLS COUNTED % (AUTO) 100 %; WHITE BLOOD COUNT 4.9 10^3/uL (4.0-10.5)
--- NOTE | 2018-05-01 19:59 | RADIOLOGY REPORT (SQ) ---
EXAM DESCRIPTION: CHEST SINGLE VIEW COMPLETED DATE/TIME: 05/01/2018 7:48 pm REASON FOR STUDY: cp COMPARISON: 11/01/2016 EXAM PARAMETERS: NUMBER OF VIEWS: One view. TECHNIQUE: Single frontal radiographic view of the chest acquired. RADIATION DOSE: NA LIMITATIONS: None. FINDINGS: LUNGS AND PLEURA: No acute opacities, masses or pneumothorax. No pleural effusion. MEDIASTINUM AND HILAR STRUCTURES: Stable. HEART AND VASCULAR STRUCTURES: Heart normal in size. Normal vasculature. BONES: No acute findings. HARDWARE: None in the chest. OTHER: No other significant finding. IMPRESSION: NO ACUTE RADIOGRAPHIC FINDING IN THE CHEST. TECHNICAL DOCUMENTATION: JOB ID: [id number] 2010 [employer]- All Rights Reserved Reading location - IP/workstation name: [email or web address]
[2018-05-01 20:14] LABS: ALANINE AMINOTRANSFERASE 30 U/L (9-52); ALBUMIN 4.1 g/dL (3.5-5.0); ALKALINE PHOSPHATASE 83 U/L (38-126); ANION GAP 11 (5-19); ASPARTATE AMINO TRANSFERASE 21 U/L (14-36); BILIRUBIN,DIRECT 0.3 mg/dL (0.0-0.4); BILIRUBIN,TOTAL 0.3 mg/dL (0.2-1.3); BLOOD UREA NITROGEN 14 mg/dL (7-20); CALCIUM 9.5 mg/dL (8.4-10.2); CARBON DIOXIDE 27 mmol/L (22-30); CHLORIDE 105 mmol/L (98-107); CREATINE KINASE 337 U/L (30-135); GLUCOSE 123 mg/dL (75-110); POTASSIUM 4.2 mmol/L (3.6-5.0); SODIUM 143.1 mmol/L (137-145); TOTAL PROTEIN 7.4 g/dL (6.3-8.2)
[2018-05-01 20:26] LABS: CREATINE KINASE MB 2.19 ng/mL (<4.55)
[2018-05-01 20:30] LABS: TROPONIN I < 0.012 ng/mL
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
--- NOTE | 2018-05-02 00:20 | EKG REPORT ---
SEVERITY:- ABNORMAL ECG - SINUS RHYTHM PROBABLE LEFT ATRIAL ABNORMALITY LVH DIFFUSE NS T CHANGES : Confirmed by: Aracelis Vivas MD 02-May-2018 00:19:06
[2018-05-02] MEDS ORDERED: ACETAMINOPHEN 325 MG TABLET PO ONE (00:38)
[2018-05-02 00:49] VITALS: BP 150/80
== END 2018-05-02 00:49 | disposition home or self-care (01) ==
LOC: ER 18:17
DX: R07.9 Chest pain, unspecified (principal); F17.210 Nicotine dependence, cigarettes, uncomplicated; I25.10 Atherosclerotic heart disease of native coronary artery without angina pectoris; E78.00 Pure hypercholesterolemia, unspecified; I10 Essential (primary) hypertension; E11.9 Type 2 diabetes mellitus without complications; Z86.718 Personal history of other venous thrombosis and embolism; Z90.49 Acquired absence of other specified parts of digestive tract; Z88.0 Allergy status to penicillin
CPT/HCPCS: 36415; 71045; 80053; 82550; 82553; 84484; 85025; 93005; 93010; 99285

== ENCOUNTER 2018-10-21 09:43 | Emergency (ER) | payer BC ==
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
--- NOTE | 2018-10-21 11:09 | RADIOLOGY REPORT (SQ) ---
EXAM DESCRIPTION: CHEST 2 VIEWS COMPLETED DATE/TIME: 10/21/2018 10:48 am REASON FOR STUDY: CP COMPARISON: 05/01/2018 EXAM PARAMETERS: NUMBER OF VIEWS: two views TECHNIQUE: Digital Frontal and Lateral radiographic views of the chest acquired. RADIATION DOSE: NA LIMITATIONS: none FINDINGS: LUNGS AND PLEURA: No opacities, masses or pneumothorax. No pleural effusion. MEDIASTINUM AND HILAR STRUCTURES: No masses or contour abnormalities. HEART AND VASCULAR STRUCTURES: Heart normal size. No evidence for failure. BONES: No acute findings. HARDWARE: None in the chest. OTHER: No other significant finding. IMPRESSION: NO ACUTE RADIOGRAPHIC FINDING IN THE CHEST. TECHNICAL DOCUMENTATION: JOB ID: [id number] [email or web address]- All Rights Reserved Reading location - IP/workstation name: [email or web address]
[2018-10-21] MEDS ORDERED: LIDOCAINE 1% INJ-PF (10 MG/ML) 30 ML SDV NEB ONE (11:27)
[2018-10-21] MEDS ORDERED: NORMAL SALINE 1000 ML 1,000 ML IV ONE (11:27)
[2018-10-21 11:58] LABS: ABSOLUTE BASOPHILS # (AUTO) 0.1 10^3/uL (0.0-0.2); ABSOLUTE EOSINOPHILS # (AUTO) 0.1 10^3/uL (0.0-0.6); ABSOLUTE MONOCYTES (AUTO) 0.5 10^3/uL (0.1-1.4); BASOPHILS % (AUTO) 1.2 % (0-2); EOSINOPHILS % (AUTO) 2.9 % (0-6); HEMATOCRIT 37.7 % (36.0-47.0); HEMOGLOBIN 12.9 g/dL (12.0-15.5); LYMPHOCYTES % (AUTO) 42.8 % (13-45); MEAN CORPUSCULAR HEMOGLOBIN 31.7 pg (27.0-33.4); MEAN CORPUSCULAR HGB CONC 34.2 g/dL (32.0-36.0); MEAN CORPUSCULAR VOLUME 93 fl (80-97); MONOCYTES % (AUTO) 10.5 % (3-13); PLATELET COUNT 228 10^3/uL (150-450); RED BLOOD COUNT 4.07 10^6/uL (3.72-5.28); RED CELL DISTRIBUTION WIDTH 13.8 % (11.5-14.0); SEGMENTED NEUTROPHILS % (AUTO) 42.6 % (42-78); TOTAL CELLS COUNTED % (AUTO) 100 %; WHITE BLOOD COUNT 4.7 10^3/uL (4.0-10.5)
[2018-10-21 12:01] LABS: APPEARANCE,URINE CLEAR; BILIRUBIN,URINE NEGATIVE (NEGATIVE); COLOR,URINE YELLOW; GLUCOSE, URINE NEGATIVE (NEGATIVE); KETONES,URINE NEGATIVE (NEGATIVE); LEUKOCYTE ESTERASE,URINE NEGATIVE (NEGATIVE); NITRITE,URINE NEGATIVE (NEGATIVE); PROTEIN,URINE 30 mg/dL (NEGATIVE); URINE SPECIFIC GRAVITY 1.017; UROBILINOGEN,URINE NEGATIVE mg/dL (<2.0)
[2018-10-21 12:11] LABS: ALANINE AMINOTRANSFERASE 29 U/L (9-52); ALBUMIN 4.1 g/dL (3.5-5.0); ALKALINE PHOSPHATASE 103 U/L (38-126); ANION GAP 7 (5-19); ASPARTATE AMINO TRANSFERASE 19 U/L (14-36); BILIRUBIN,DIRECT 0.2 mg/dL (0.0-0.4); BILIRUBIN,TOTAL 0.4 mg/dL (0.2-1.3); BLOOD UREA NITROGEN 13 mg/dL (7-20); CALCIUM 9.3 mg/dL (8.4-10.2); CARBON DIOXIDE 29 mmol/L (22-30); CHLORIDE 105 mmol/L (98-107); CREATINE KINASE 397 U/L (30-135); GLUCOSE 110 mg/dL (75-110); POTASSIUM 4.5 mmol/L (3.6-5.0); SODIUM 140.6 mmol/L (137-145); TOTAL PROTEIN 6.6 g/dL (6.3-8.2)
[2018-10-21 12:13] LABS: A TYPE INFLUENZA AG NEGATIVE (NEGATIVE); B INFLUENZA AG NEGATIVE (NEGATIVE)
[2018-10-21 12:23] LABS: CREATINE KINASE MB 2.18 ng/mL (<4.55); TROPONIN I < 0.012 ng/mL
[2018-10-21] MEDS ORDERED: ALBUTEROL SULFATE HFA (90 MCG/PUFF) 8 GM MDI (1 MDI/ER DISP) IH ONE (13:57)
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
[2018-10-21 14:44] VITALS: BP 126/73
--- NOTE | 2018-10-21 16:48 | EKG REPORT ---
SEVERITY:- ABNORMAL ECG - SINUS RHYTHM LEFT VENTRICULAR HYPERTROPHY : Confirmed by: Benny Marks MD 21-Oct-2018 16:47:00
== END 2018-10-21 14:05 | disposition home or self-care (01) ==
LOC: ER 09:43
DX: R05 Cough (principal); J02.9 Acute pharyngitis, unspecified; R51 Headache; R07.9 Chest pain, unspecified; M79.10 Myalgia, unspecified site; R06.02 Shortness of breath; F17.200 Nicotine dependence, unspecified, uncomplicated; I25.10 Atherosclerotic heart disease of native coronary artery without angina pectoris; I10 Essential (primary) hypertension; E11.9 Type 2 diabetes mellitus without complications; Z88.0 Allergy status to penicillin
CPT/HCPCS: 93005; 99284; 36415; 87070; 82553; 87880; 82550; 85025; 80053; 81001; 84484; 87804; 71046; 93010; J3490; J7030

== ENCOUNTER 2020-05-30 08:45 | Emergency (ER) | payer BC ==
[2020-05-30 08:51] VITALS: BP 141/77
[2020-05-30] MEDS ORDERED: LIDOCAINE 5% (700 MG) TRANSDERMAL ADH..PATCH TP ONE (10:28)
[2020-05-30] MEDS ORDERED: CYCLOBENZAPRINE HCL 10 MG TABLET PO ONE (10:28)
[2020-05-30] MEDS ORDERED: KETOROLAC TROMETHAMINE 60 MG/2 ML SDV IM ONE (10:28)
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
== END 2020-05-30 12:01 | disposition home or self-care (01) ==
LOC: ER 08:45
DX: M54.31 Sciatica, right side (principal); M54.9 Dorsalgia, unspecified; M79.604 Pain in right leg; M25.561 Pain in right knee; G89.29 Other chronic pain; Z79.899 Other long term (current) drug therapy; F17.200 Nicotine dependence, unspecified, uncomplicated; I25.10 Atherosclerotic heart disease of native coronary artery without angina pectoris; I10 Essential (primary) hypertension; E11.9 Type 2 diabetes mellitus without complications
CPT/HCPCS: 99284; 96374; J1885